=== PATIENT | female | born 1965 | race Two or more races ===

== ENCOUNTER 2024-04-19 22:29 | Emergency (ER) | payer OTHER ==
[~2024-04-19] VITALS: Ht 165.1 cm; Wt 90.7 kg
[2024-04-19] MEDS ORDERED: SYNTHROID125 MCG PO (23:00)
[2024-04-19] MEDS ORDERED: ZYRTEC10 M3 PO (23:00)
[2024-04-19] MEDS ORDERED: PEPCID AC20 MG PO (23:00)
[2024-04-20] MEDS ORDERED: TAMSULOSIN HCL 0.4 MG CAP PO STA (00:26)
[2024-04-20] MEDS ORDERED: KETOROLAC TROMETHAMINE 30 MG VIAL IV STA (00:26)
[2024-04-20] MEDS ORDERED: PROMETHAZINE HCL 50 MG/ML AMPUL IM STA (00:26)
[2024-04-20] MEDS ORDERED: SODIUM CHLORIDE 0.45 % 1,000 ML IV ONE (00:30)
[2024-04-20] MEDS ORDERED: TAMSULOSIN HCL 0.4 MG CAP PO ONE (00:39)
[2024-04-20] MEDS ORDERED: KETOROLAC TROMETHAMINE 30 MG VIAL ONE (00:39)
[2024-04-20] MEDS ORDERED: PROMETHAZINE HCL 50 MG/ML AMPUL IM ONE (00:40)
[2024-04-20 01:21] LABS: HEMATOCRIT 40.1 % (36.0-45.00); HEMOGLOBIN 13.6 g/dL (12.0-15.00); MEAN CELL VOLUME 88.7 fL (80.00-100.00); MEAN CORPUSCULAR HEMOGLOBIN 30.2 pg (27.00-32.0); PLATELET COUNT 305 K/uL (150-450); RED BLOOD COUNT 4.52 M/uL (4.00-6.00)
[2024-04-20 01:29] LABS: PH,URINE 5.5 (5.0-8.0); URINE APPEARANCE Clear; URINE BILIRRUBIN Negative (NEGATIVE); URINE BLOOD Negative; URINE COLOR Yellow; URINE GLUCOSE Negative (NEGATIVE); URINE KETONE Negative (NEGATIVE); URINE LEUKOCYTE Small; URINE NITRATE Negative; URINE PROTEIN Negative (NEGATIVE); URINE UROBILINOGEN 0.2 E.U./dl
[2024-04-20 01:32] LABS: URINE BACTERIA 129.7 uL (0.0-1933); URINE EPITHELIAL CELLS 4.9 uL (0.0-38.8); URINE RBC 2.2 uL (0.0-20.8); URINE WBC 74.8 uL (0.0-23.2)
[2024-04-20 01:39] LABS: CALCIUM 9.2 mg/dL (8.5-10.1); CREATININE SERUM 0.75 mg/dL (0.55-1.02); GFR 79.93; POTASSIUM 4.04 mEq/L (3.5-5.1)
[2024-04-20] MEDS ORDERED: KETO10TA2 PO (04:15)
[2024-04-20] MEDS ORDERED: MACROBID 100 M100 MG PO (04:15)
== END 2024-04-20 04:38 ==
LOC: ER 22:32
PROVIDERS: General Practice
DX: N39.0 Urinary tract infection, site not specified (principal); R10.9 Unspecified abdominal pain; Z88.5 Allergy status to narcotic agent; Z88.6 Allergy status to analgesic agent
CPT/HCPCS: 36415; 74176; 96365; 96372; 99284; J1885; J2550